=== PATIENT | female | born 2000 | race Caucasian/White ===

== ENCOUNTER 2019-08-22 09:32 | Emergency (ER) | payer OTHER ==
[~2019-08-22] VITALS: Ht 167.6 cm; Wt 54.4 kg
[~2019-08-22 09:32] MED LIST: BUTALB-APAP-CA1 EACH PO; IBUPROFEN 200200 M1 PO
[2019-08-22 11:27] LABS: ABSOLUTE EOSINOPHILS 0.1 thou/uL (0.0-0.7); ABSOLUTE LYMPHOCYTES 1.8 thou/uL (0.8-5.3); ABSOLUTE MONOCYTES 0.7 thou/uL (0.0-1.2); ABSOLUTE NEUTROPHILS 7.1 thou/uL (1.6-8.1); BASOPHILS 0.4 %; EOSINOPHILS 1.5 %; HEMATOCRIT 44.3 % (37.0-47.0); HEMOGLOBIN 15.3 gm/dL (12.0-15.0); LYMPHOCYTES 18.7 %; MCH 32.2 pg (26.0-34.0); MCHC 34.5 g/dL (28.0-37.0); MCV 93.3 fL (80.0-100.0); MONOCYTES 7.4 %; NUCLEATED RBCS 0 /100WBC; PLATELET COUNT* 175 thou/uL (150-400); RBC 4.74 mil/uL (4.20-5.00); WBC 9.8 thou/uL (4.0-11.0)
[2019-08-22 11:35] LABS: CALCIUM 8.3 mg/dL (8.5-10.1); CREATININE 0.9 mg/dL (0.6-1.3); POTASSIUM 3.7 mmol/L (3.5-5.1)
[2019-08-22 11:59] VITALS: BP 103/76
== END 2019-08-22 12:00 | disposition home or self-care (01) ==
LOC: M.ERS 09:32
PROVIDERS: Nurse Practitioner Family
DX: G43.909 Migraine, unspecified, not intractable, without status migrainosus (principal); Z91.048 Other nonmedicinal substance allergy status; Z88.8 Allergy status to other drugs, medicaments and biological substances

== ENCOUNTER → 2020-04-12 | Outpatient (CLI) | payer OTHER ==
--- NOTE | 2020-04-12 16:44 | 2DMMODE ---
[place] [address] 2 D/M-MODE ECHOCARDIOGRAM Name: SE BROWNING Room: [facility]#: [id number] Admission: 04/12/20 Attend Phys: Kwasi Herring MD Discharge: Date of : 89 Date of Service: 04/12/20 1642 Report #: [id number] THIS REPORT FOR: cc: FAM - No family physician/PCP FAM - No family physician/PCP Ochoa Romano MD [facility] ~ APPROVED REPORT Study performed: 04/12/2020 10:31:27 EXAM: Comprehensive 2D, Doppler, and color-flow Echocardiogram Patient Location: Out-Patient BSA: 1.52 HR: 75 bpm BP: 120/70 mmHg Other Information Study Quality: Good Indications Chest Pain 2D Dimensions IVSd: 7.46 (7-11mm) LVOT Diam: 19.20 (18-24mm) LVDd: 38.29 mm PWd: 7.46 (7-11mm) Ascending Ao: 20.92 (22-36mm) LVDs: 25.79 (25-40mm) Aortic Root: 18.57 mm Volumes Left Atrial Volume (Systole) LA ESV Index: 9.30 mL/m2 Aortic Valve AoV Peak Bill.: 0.88 m/s AO Peak Gr.: 3.10 mmHg LVOT Max P.77 mmHg AO Mean Gr.: 1.63 mmHg LVOT Mean P.96 mmHg LVOT Max V: 0.66 m/s AO V2 VTI: 14.24 cm LVOT Mean V: 0.46 m/s RAMÍREZ (VTI): 2.51 cm2 LVOT V1 VTI: 12.35 cm Mitral Valve E/A Ratio: 1.13 [place] [address] 2 D/M-MODE ECHOCARDIOGRAM Name: SE BROWNING Room: [facility]#: [id number] Admission: 04/12/20 Attend Phys: Kwasi Herring MD Discharge: Date of : 89 Date of Service: 04/12/20 1642 Report #: [id number] MV Decel. Time: 209.27 ms MV E Max Bill.: 0.66 m/s MV PHT: 60.69 ms MVA (PHT): 3.63 cm2 TDI E/Lateral E': 4.13 E/Medial E': 5.08 Medial E' Bill.: 0.13 m/s Lateral E' Bill.: 0.16 m/s Pulmonary Valve PV Peak Bill.: 0.72 m/s PV Peak Gr.: 2.08 mmHg Left Ventricle The left ventricle is normal size. There is normal LV segmental wall motion. There is normal left ventricular wall thickness. Left ventricular systolic function is normal. LVEF is 60-65%. The left ventricular diastolic function is normal. Right Ventricle The right ventricle is normal size. The right ventricular systolic function is normal. Atria The left atrium size is normal. The right atrium size is normal. Aortic Valve The aortic valve is normal in structure. No aortic regurgitation is present. There is no aortic valvular stenosis. Mitral Valve The mitral valve is normal in structure. There is no mitral valve regurgitation noted. No evidence of mitral valve stenosis. Tricuspid Valve The tricuspid valve is normal in structure. There is no tricuspid valve regurgitation noted. Pulmonic Valve The pulmonary valve is normal in structure. There is no pulmonic valvular regurgitation. Great Vessels The aortic root is normal in size. IVC is normal in size and collapses >50% with [place] [address] 2 D/M-MODE ECHOCARDIOGRAM Name: SE BROWNING Room: [facility]#: [id number] Admission: 04/12/20 Attend Phys: Kwasi Herring MD Discharge: Date of : 89 Date of Service: 04/12/20 1642 Report #: [id number] Pericardium There is no pericardial effusion. <Conclusion> The left ventricle is normal size. There is normal left ventricular wall thickness. Left ventricular systolic function is normal. LVEF is 60-65%. The left ventricular diastolic function is normal. IVC is normal in size and collapses >50% with inspiration. <ELECTRONICALLY SIGNED> By: Ochoa Romano MD, FACC 04/12/201641 [id number] Ochoa Romano MD, FACC /INF
== END ==
LOC: M.CRD 10:41
DX: R07.1 Chest pain on breathing (principal)

== ENCOUNTER 2020-06-30 10:38 | Emergency (ER) | payer OTHER ==
[~2020-06-30] VITALS: Ht 167.6 cm; Wt 49.0 kg
[2020-06-30] MEDS ORDERED: JUNEL FE 1-201 EACH PO (10:48)
[2020-06-30] MEDS ORDERED: BUTALBIT-ACETA1 EACH PO (10:49)
[2020-06-30 12:08] VITALS: BP 128/77
== END 2020-06-30 12:10 | disposition home or self-care (01) ==
LOC: M.ERS 10:38
DX: G43.909 Migraine, unspecified, not intractable, without status migrainosus (principal); Z88.1 Allergy status to other antibiotic agents; Z88.8 Allergy status to other drugs, medicaments and biological substances

== ENCOUNTER → 2020-12-21 | Outpatient (CLI) | payer OTHER ==
[~2020-12-21] MED LIST changes: +BUTALBIT-ACETA1 EACH PO; +JUNEL FE 1-201 EACH PO
[2020-12-21 10:35] LABS: ABSOLUTE BASOPHILS 0.1 thou/uL (0.0-0.2); ABSOLUTE EOSINOPHILS 0.2 thou/uL (0.0-0.7); ABSOLUTE LYMPHOCYTES 1.8 thou/uL (0.8-5.3); ABSOLUTE MONOCYTES 0.6 thou/uL (0.0-1.2); ABSOLUTE NEUTROPHILS 2.7 thou/uL (1.6-8.1); BASOPHILS 1.2 %; EOSINOPHILS 3.9 %; HEMOGLOBIN 15.3 gm/dL (12.0-15.0); MCH 31.9 pg (26.0-34.0); MCHC 33.3 g/dL (28.0-37.0); MCV 95.7 fL (80.0-100.0); MONOCYTES 11.9 %; MPV 7.5 fl. (7.2-11.1); NUCLEATED RBCS 0 /100WBC; PLATELET COUNT* 211 thou/uL (150-400); RDW-CV 12.7 % (10.5-14.5); WBC 5.4 thou/uL (4.0-11.0)
[2020-12-21 10:48] LABS: ALBUMIN 3.9 g/dL (3.4-5.0); CALCIUM 8.8 mg/dL (8.5-10.1); CREATININE 0.9 mg/dL (0.6-1.3); POTASSIUM 3.7 mmol/L (3.5-5.1); TOTAL BILIRUBIN 0.4 mg/dL (<0.1-1.0); TOTAL PROTEIN 7.5 g/dL (6.4-8.2)
== END ==
LOC: M.LAB 10:19
PROVIDERS: ATTEND Specialist
DX: R63.4 Abnormal weight loss (principal); Z83.49 Family history of other endocrine, nutritional and metabolic diseases

== ENCOUNTER 2021-02-18 12:07 | Emergency (ER) | payer OTHER ==
[~2021-02-18] VITALS: Ht 167.6 cm; Wt 45.4 kg
[2021-02-18 12:44] LABS: INFLUENZA A ANTIGEN Negative (Negative); INFLUENZA B ANTIGEN Negative (Negative)
[2021-02-18 13:11] LABS: HEMATOCRIT 44.5 % (37.0-47.0); MCH 31.7 pg (26.0-34.0); MCHC 33.7 g/dL (28.0-37.0); MCV 94.1 fL (80.0-100.0); MPV 7.9 fl. (7.2-11.1); NUCLEATED RBCS 0 /100WBC; PLATELET COUNT* 204 thou/uL (150-400); RBC 4.73 mil/uL (4.20-5.00); RDW-CV 12.8 % (10.5-14.5); WBC 20.8 thou/uL (4.0-11.0)
[2021-02-18 13:18] LABS: CALCIUM 9.4 mg/dL (8.5-10.1); CREATININE 0.8 mg/dL (0.6-1.3); POTASSIUM 3.2 mmol/L (3.5-5.1)
[2021-02-18 13:25] LABS: ALBUMIN 3.6 g/dL (3.4-5.0); TOTAL BILIRUBIN 0.7 mg/dL (<0.1-1.0); TOTAL PROTEIN 8.1 g/dL (6.4-8.2)
[2021-02-18 13:30] LABS: ABSOLUTE BASOPHILS 0.2 thou/uL (0.0-0.2); ABSOLUTE LYMPHOCYTES 0.8 thou/uL (0.8-5.3); ABSOLUTE MONOCYTES 1.7 thou/uL (0.0-1.2); ABSOLUTE NEUTROPHILS 18.1 thou/uL (1.6-8.1)
[2021-02-18 13:31] LABS: PLATELET ESTIMATE ADEQUATE
[2021-02-18 14:23] LABS: URINE BILIRUBIN NEGATIVE (Negative); URINE BLOOD 2+ (Negative); URINE COLOR YELLOW; URINE GLUCOSE-RANDOM NEGATIVE (Negative); URINE KETONES 1+ (Negative); URINE LEUKOCYTES-REFLEX NEGATIVE (Negative); URINE PROTEIN 2+ (Negative); URINE SPECIFIC GRAVITY >= 1.030 (1.005-1.030)
[2021-02-18 14:26] LABS: URINE CLARITY HAZY; URINE NITRITE-REFLEX POSITIVE (Negative)
[2021-02-18 14:30] VITALS: BP 125/85
[2021-02-18 14:33] LABS: BACTERIA-REFLEX >30 Many /HPF (None Seen); CASTS None Seen /LPF (None Seen); CRYSTALS None Seen /LPF (None Seen); MUCUS >6 Heavy strn/LPF (None Seen); SQUAMOUS 4-10 Moderate /LPF (0-3); URINE RBC 3-10 Few /HPF (0-2); URINE WBC-REFLEX 6-15 Few /HPF (0-5)
[2021-02-18] MEDS ORDERED: ONDANSETRON HCL4 M2 PO (14:35)
[2021-02-18] MEDS ORDERED: AUGMENTIN 875-1 EACH PO (14:35)
== END 2021-02-18 14:30 | disposition home or self-care (01) ==
LOC: M.ERS 12:07
PROVIDERS: Physician Assistant
DX: N39.0 Urinary tract infection, site not specified (principal); J02.0 Streptococcal pharyngitis; Z20.822 Contact with and (suspected) exposure to COVID-19; G43.909 Migraine, unspecified, not intractable, without status migrainosus; Z79.899 Other long term (current) drug therapy; Z88.1 Allergy status to other antibiotic agents; Z91.048 Other nonmedicinal substance allergy status

== ENCOUNTER 2021-04-16 20:18 | Emergency (ER) | payer OTHER ==
[~2021-04-16] VITALS: Ht 167.6 cm; Wt 45.4 kg
[~2021-04-16 20:18] MED LIST changes: +AUGMENTIN 875-1 EACH PO; +ONDANSETRON HCL4 M2 PO
[2021-04-16 21:08] LABS: ABSOLUTE BASOPHILS 0.1 thou/uL (0.0-0.2); ABSOLUTE EOSINOPHILS 0.3 thou/uL (0.0-0.7); ABSOLUTE LYMPHOCYTES 1.9 thou/uL (0.8-5.3); ABSOLUTE MONOCYTES 0.9 thou/uL (0.0-1.2); ABSOLUTE NEUTROPHILS 7.4 thou/uL (1.6-8.1); BASOPHILS 0.5 %; EOSINOPHILS 3.2 %; HEMATOCRIT 44.7 % (37.0-47.0); HEMOGLOBIN 15.2 gm/dL (12.0-15.0); LYMPHOCYTES 17.6 %; MCH 32.6 pg (26.0-34.0); MCV 95.7 fL (80.0-100.0); MONOCYTES 8.8 %; MPV 7.8 fl. (7.2-11.1); NUCLEATED RBCS 0 /100WBC; PLATELET COUNT* 205 thou/uL (150-400); POLYS 69.9 %; RBC 4.67 mil/uL (4.20-5.00); RDW-CV 13.5 % (10.5-14.5); WBC 10.6 thou/uL (4.0-11.0)
[2021-04-16 21:22] LABS: CALCIUM 8.8 mg/dL (8.5-10.1); CREATININE 0.8 mg/dL (0.6-1.3); POTASSIUM 3.5 mmol/L (3.5-5.1)
[2021-04-16 21:26] LABS: ALBUMIN 3.6 g/dL (3.4-5.0); MAGNESIUM 2.1 mg/dL (1.8-2.4); TOTAL BILIRUBIN 0.4 mg/dL (<0.1-1.0); TOTAL PROTEIN 7.7 g/dL (6.4-8.2)
[2021-04-16 22:28] LABS: URINE BILIRUBIN NEGATIVE (Negative); URINE BLOOD 1+ (Negative); URINE CLARITY CLEAR; URINE COLOR YELLOW; URINE GLUCOSE-RANDOM NEGATIVE (Negative); URINE KETONES NEGATIVE (Negative); URINE LEUKOCYTES-REFLEX NEGATIVE (Negative); URINE NITRITE-REFLEX NEGATIVE (Negative); URINE PROTEIN NEGATIVE (Negative); URINE SPECIFIC GRAVITY >= 1.030 (1.005-1.030); URINE UROBILINOGEN 0.2 E.U./dl (0.2-1.0)
[2021-04-16 22:43] LABS: SQUAMOUS >10 Many /LPF (0-3)
[2021-04-16 22:44] LABS: BACTERIA-REFLEX 1-9 Few /HPF (None Seen); CASTS None Seen /LPF (None Seen); URINE RBC 3-10 Few /HPF (0-2); URINE WBC-REFLEX 6-15 Few /HPF (0-5)
[2021-04-16 22:45] LABS: CRYSTALS None Seen /LPF (None Seen)
[2021-04-16] MEDS ORDERED: Magic Mouthwash SWISH&SPIT (22:53)
[2021-04-16] MEDS ORDERED: AUGMENTIN400 MG/53 PO (22:53)
[2021-04-16 23:07] VITALS: BP 124/70
== END 2021-04-16 23:07 | disposition home or self-care (01) ==
LOC: M.ERS 20:18
PROVIDERS: Personal Emergency Response Attendant
DX: M54.2 Cervicalgia (principal); J03.01 Acute recurrent streptococcal tonsillitis; Z20.822 Contact with and (suspected) exposure to COVID-19; G43.909 Migraine, unspecified, not intractable, without status migrainosus; Z88.1 Allergy status to other antibiotic agents; Z88.8 Allergy status to other drugs, medicaments and biological substances; Z79.899 Other long term (current) drug therapy

== ENCOUNTER → 2021-06-03 | Outpatient (CLI) | payer OTHER ==
[~2021-06-03] MED LIST changes: +AUGMENTIN400 MG/53 PO; +Magic Mouthwash SWISH&SPIT
== END ==
LOC: M.LAB 09:21
PROVIDERS: ATTEND Otolaryngology
DX: Z01.812 Encounter for preprocedural laboratory examination (principal); Z20.822 Contact with and (suspected) exposure to COVID-19